=== PATIENT | male | born 2000 | race Caucasian/White ===

== ENCOUNTER 2022-06-09 18:05 | Emergency (ER) | payer MEDICAID, SELFPAY ==
[2022-06-09 18:26] VITALS: BP 110/64; PULSE 112; RESP 20; TEMP 37.1; O2SAT 98
--- NOTE | 2022-06-09 18:52 | ED.GENADUL_ITS ---
Discharge Plan Disposition Patient Disposition: Home Condition: Improving Discharge Details Clinical Impression: Nausea & vomiting, Elevated bilirubin Primary Care Provider: Temi,Local ED Provider: Carter Lopez Home Meds and New Rx's Prescriptions: New ondansetron 4 mg tablet,disintegrating 4 mg PO Q8H PRN3 Days Qty: 9 0RF Discharge Instructions Instructions: Acute Nausea and Vomiting (ED) Additional Instructions: Zofran as directed. Clear liquid diet, advance to bananas, rice, applesauce, tea, toast. Using shared decision making, it was decided to ultrasound tomorrow versus CT imaging here in the ER now. The radiology team should be calling you in the morning so that the ultrasound appointment and after the ultrasound you will return to the ER for results. In the meantime, please watch for new or worsening symptoms and return immediately to the ER. Medical Decision Making This is a 21-year-old male who has been eating 4 slices of pizza for the past 6- 8 months secondary to financial constraints, otherwise was feeling well, denies lack of appetite as a reason for this. During this timeframe he lost a pproximately 10 pounds. Patient states that he came home from school on Thursday, had multiple rich meals, developed nausea, vomiting, diarrhea. Clinically he is well, nontoxic but slightly anxious, slightly dry. Plan is to obtain IV access, obtain routine screening laboratory values, give IV Zofran, 2 L IV fluid and reassess. Abdomen soft, nontender. Patient reports complete resolution of all the symptoms with IV Zofran. Able to tolerate p.o. intake without difficulty. Laboratory values reveal minimal nonspecific leukocytosis of 11.02. Absolute neutrophils of 9.39. Sodium 135 potassium 4.0. Creatinine is 1.6 with a GFR of 62.87. Glucose 152. Total bilirubin of 1.7, LFTs otherwise unremarkable, lipase 20. TSH 0.98. Urinalysis unremarkable for infection or hematuria. Laboratory values did not reveal any obvious emergent process. Minimal nonspecific leukocytosis and total bili of 1.7. Abdomen is soft, nontender. Heart rate now in the 80s. Tolerated p.o. intake, no additional nausea or vomiting here in the ER. Clinically he appears well, nontoxic. Given his nausea and vomiting, minimal nonspecific leukocytosis and bilirubin of 1.7, we discussed neck steps such as imaging. We discussed obtaining CT imaging now, we discussed pros and cons of radiation. We also discussed obtaining ultrasound tomorrow morning and then returning to the ER. Patient would prefer to avoid any radiation at this time as he is currently asymptomatic and would like to return tomorrow for an ultrasound. Given his overall clinical presentation I believe this to be reasonable. Strict discharge and return precautions were provided. Patient understands, is agreeable to this plan, and has no additional questions or concerns upon discharge. This documentation was generated using [employer] system, please disregard any oddities of phrase or misspellings. Lab Data Lab results reviewed: Yes I reviewed the patient's lab results. Labs: 06/09/22 20:45 Urine - Reflex from Ua Urine Culture - Pending Laboratory Tests Range/Units 06/09/22 06/09/22 06/09/22 19:00 19:00 19:00 WBC (4.4-10.8) 10^3/uL 11.02 H RBC (4.36-5.78) 10^6/uL 5.52 Hgb (13.5-17.5) g/dL 17.2 Hct (40.0-50.0) % 49.0 MCV (80-95) fL 89 MCH (27.0-33.0) pg 31.2 MCHC (32.0-36.0) % 35.1 RDW (11.8-14.1) % 11.9 Plt Count (130-400) 10^3/uL 264 MPV (8.0-11.0) fL 9.3 Immature Gran % 0.6 Neutrophils % 85.2 Lymphocytes % 4.6 Monocytes % 9.3 Eosinophils % 0.0 Basophils % 0.3 Nucleated RBC % (0.0-0.3) % 0.0 Absolute Neutrophils (1.2-6.7) 10^3/uL 9.39 H Absolute Lymphocytes (1.2-3.4) 10^3/uL 0.51 L Absolute Monocytes (0.1-0.8) 10^3/uL 1.02 H Absolute Eosinophils (0.0-0.7) 10^3/uL 0.00 Absolute Basophils (0.0-0.2) 10^3/uL 0.03 Sodium (136-145) mmol/L 135 L Potassium (3.5-5.1) mmol/L 4.0 Chloride (98-107) mmol/L 100 Carbon Dioxide (21.0-32.0) mmol/L 24.0 Anion Gap (3-11) mmol/L 11.0 BUN (7-18) mg/dL 29 H Creatinine (0.70-1.30) mg/dL 1.6 H Est GFR (CKD-EPI 2020) (mL/min/1.73m2) 62.87 Glucose (74-106) mg/dL 152 H Calcium (8.5-10.1) mg/dL 9.2 Total Bilirubin (0.2-1.0) mg/dL 1.7 H AST (15-37) U/L 22 ALT (16-63) U/L 29 Alkaline Phosphatase (46-116) U/L 80 Total Protein (6.4-8.2) g/dL 8.6 H Albumin (3.4-5.0) g/dL 4.5 Lipase (73-393) U/L 20 TSH (0.36-3.74) uIU/mL 0.98 Urine Color (Yellow) Urine Clarity (Clear) Urine pH (5-8) Ur Specific [place] (1.005-1.025) Urine Protein (Negative) mg/dL Urine Ketones (Negative) mg/dL Urine Blood (Negative) Urine Nitrite (Negative) Urine Bilirubin (Negative) Urine Urobilinogen (Up TO 0.2) EU/dL Ur Leukocyte Esterase (Negative) Urine RBC (0-2) HPF Urine WBC (0-5) HPF Ur Epithelial Cells (Negative) HPF Urine Crystals (Negative) HPF Urine Bacteria (Negative) HPF Urine Casts (Negative) LPF Urine Mucus (Negative) Ur Culture Indicated? Urine Glucose (Negative) mg/dL Urine Opiates Screen (Negative) Urine Methadone Screen (Negative) Ur Barbiturates Screen (Negative) Ur Tricyclics Screen (Negative) Ur Amphetamines Screen (Negative) U Benzodiazepines Scrn (Negative) Urine Cocaine Screen (Negative) Ur THC Screen (Negative) COVID-19 Source SARS-CoV-2 (PCR) (Negative) Influenza Type A (PCR) (Negative) Influenza Type B (PCR) (Negative) RSV (PCR) (Negative) Range/Units 06/09/22 06/09/22 06/09/22 19:00 20:45 20:45 WBC (4.4-10.8) 10^3/uL RBC (4.36-5.78) 10^6/uL Hgb (13.5-17.5) g/dL Hct (40.0-50.0) % MCV (80-95) fL MCH (27.0-33.0) pg MCHC (32.0-36.0) % RDW (11.8-14.1) % Plt Count (130-400) 10^3/uL MPV (8.0-11.0) fL Immature Gran % Neutrophils % Lymphocytes % Monocytes % Eosinophils % Basophils % Nucleated RBC % (0.0-0.3) % Absolute Neutrophils (1.2-6.7) 10^3/uL Absolute Lymphocytes (1.2-3.4) 10^3/uL Absolute Monocytes (0.1-0.8) 10^3/uL Absolute Eosinophils (0.0-0.7) 10^3/uL Absolute Basophils (0.0-0.2) 10^3/uL Sodium (136-145) mmol/L Potassium (3.5-5.1) mmol/L Chloride (98-107) mmol/L Carbon Dioxide (21.0-32.0) mmol/L Anion Gap (3-11) mmol/L BUN (7-18) mg/dL Creatinine (0.70-1.30) mg/dL Est GFR (CKD-EPI 2020) (mL/min/1.73m2) Glucose (74-106) mg/dL Calcium (8.5-10.1) mg/dL Total Bilirubin (0.2-1.0) mg/dL AST (15-37) U/L ALT (16-63) U/L Alkaline Phosphatase (46-116) U/L Total Protein (6.4-8.2) g/dL Albumin (3.4-5.0) g/dL Lipase (73-393) U/L TSH (0.36-3.74) uIU/mL Urine Color (Yellow) Yellow Urine Clarity (Clear) Clear Urine pH (5-8) 5.5 Ur Specific [place] (1.005-1.025) >= 1.030 H Urine Protein (Negative) mg/dL 30 H Urine Ketones (Negative) mg/dL Negative Urine Blood (Negative) Negative Urine Nitrite (Negative) Negative Urine Bilirubin (Negative) Negative Urine Urobilinogen (Up TO 0.2) EU/dL 0.2 Ur Leukocyte Esterase (Negative) Negative Urine RBC (0-2) HPF 0-2 Urine WBC (0-5) HPF 3-5 Ur Epithelial Cells (Negative) HPF Rare Urine Crystals (Negative) HPF Negative Urine Bacteria (Negative) HPF Many Urine Casts (Negative) LPF 3-5 Hyaline Urine Mucus (Negative) Moderate Ur Culture Indicated? Yes Urine Glucose (Negative) mg/dL Negative Urine Opiates Screen (Negative) Negative Urine Methadone Screen (Negative) Negative Ur Barbiturates Screen (Negative) Negative Ur Tricyclics Screen (Negative) Negative Ur Amphetamines Screen (Negative) Negative U Benzodiazepines Scrn (Negative) Negative Urine Cocaine Screen (Negative) Negative Ur THC Screen (Negative) Negative COVID-19 Source Nasopharynx SARS-CoV-2 (PCR) (Negative) Negative Influenza Type A (PCR) (Negative) Negative Influenza Type B (PCR) (Negative) Negative RSV (PCR) (Negative) Negative Sign Out No HPI General Mode of arrival: ambulatory . Date/Time Provider Initiated Documentation: 06/09/22 18:20 . Limitations to Documentation: no limitations . Information obtained by: patient and family . HPI Narrative: This is a 21-year-old male with no significant past medical history presenting to the ER with his parents for evaluation of nausea and vomiting. Patient states that he has been at college for the past year or so and because of financial restraints has been eating 4 pieces of pizza daily for the past 6 months and that consists of his entire diet. He states in that timeframe he lost approximately 10 pounds. He reports that his appetite was normal and he was otherwise asymptomatic. He came home on Thursday and ate out at a restaurant, had multiple rich meals, and since that time has had nausea, vomiting, diarrhea. Patient is reporting decreased intake for the past 3 days, reports that he lost approximately 5-10 pounds over the past weekend, occasionally has abdominal cramping with the vomiting but otherwise has no abdominal pain. He denies recent illness or sick contacts. Denies bad food exposure. He does report overall not feeling well, mild headache, some body aches. Denies fever, chest pain, shortness of breath, constipation, change in stool color, dysuria, skin rash, numbness, tingling, weakness. Related Data Home Medications Medication Instructions Recorded Confirmed ondansetron 4 mg disintegrating 4 mg PO Q8H PRN 3 days #9 tabs 06/09/22 tablet Previous Rx's Medication Instructions Recorded ondansetron 4 mg disintegrating 4 mg PO Q8H PRN 3 days #9 tabs 06/09/22 tablet Allergies Allergy/AdvReac Type Severity Reaction Status Date / Time No Known Allergies Allergy Unverified 06/09/22 19:06 General Stated Complaint: Abd Prob SANDY: 3 Review of Systems Constitutional Constitutional: Denies fever(s) and Reports headache(s) ENT Ears, Nose, Mouth, and Throat: Reports headache(s) and Denies sore throat Cardiovascular Cardiovascular: Denies chest pain and Denies dyspnea Respiratory Respiratory: Denies cough and Denies dyspnea Gastrointestinal Gastrointestinal: Reports abdominal pain, Denies melena, Denies hematochezia, Denies constipation, Reports diarrhea, Reports nausea and Reports vomiting Genitourinary Genitourinary: Denies dysuria Musculoskeletal Musculoskeletal: Denies back pain Integumentary/Breasts Skin/Breast: Denies rash Neurologic Neurologic: Reports headache(s) PFSH All Active Problems Nausea & vomiting (Acute) Elevated bilirubin (Acute) Social History Smoking/Tobacco Use Status: Never Smoking risk assessment performed?: Yes Alcohol Intake: never Substance use type: does not use Do you feel safe at home: Yes Do you feel safe in your relationship?: Yes Exam Const General: cooperative, healthy appearing, comfortable, no acute distress and anxious (Minimally) Orientation: alert and awake [facility] Head: normal to inspection, normocephalic and atraumatic Mouth: moist mucous membranes abnormal (Slightly dry) Eyes General: appearance normal, both eyes and all related structures Conjunctivae: conjunctivae normal Neck Neck: normal visual inspection, full ROM, no meningeal signs, trachea midline and supple Resp Effort & Inspection: normal respiratory effort and able to speak in complete sentences Auscultation: clear to auscultation bilaterally Cardio Rate: tachycardic (108) Rhythm: regular rhythm GI Inspection: normal to inspection Palpation: soft, not firm, no guarding, no pulsatile masses and nontender Auscultation: normal bowel sounds Back/Spine/Pelvis Back: no CVA tenderness and No back tenderness Skin General skin exam: no rashes or lesions noted Neuro General: patient alert, patient awake, moves all extremities and no focal motor deficits Cognition: normal cognition Speech: speech normal Gait: normal gait Motor: muscle tone normal throughout Sensory Exam: no sensory deficits noted Extrem General: normal to inspection, full ROM and capillary refill normal Psych Appearance: grossly normal Mental Status: mental status grossly normal Course Vital Signs Vital signs: Vital Signs Temperature 37.1 C 06/09/22 18:26 Pulse 112 H 06/09/22 18:26 Respiratory Rate 20 06/09/22 18:26 Blood Pressure 110/64 06/09/22 18:26 Pulse Oximetry 98 06/09/22 18:26 Temperature 37.1 C 06/09/22 18:26 Temperature Source Temporal Artery Scan 06/09/22 18:26 Pulse 112 H 06/09/22 18:26 Respiratory Rate 20 06/09/22 18:26 Blood Pressure 110/64 06/09/22 18:26 Blood Pressure Position Sitting 06/09/22 18:26 Pulse Oximetry 98 06/09/22 18:26 Oxygen Delivery Method Room Air 06/09/22 18:26 Oxygen Flow Rate 0 06/09/22 18:26 Pain Level 0 06/09/22 18:26
[2022-06-09] MEDS: Ondansetron 4 MG/2 ML VIAL IVP (19:02)
[2022-06-09] MEDS: Normal Saline 1,000 ML 1000 ML IV ×2 (19:02→20:00)
[2022-06-09 19:17] LABS: Abs Immature Grans 0.07 10^3/uL (0.0-0.06); Absolute Basophil Count 0.03 10^3/uL (0.0-0.2); Absolute Lymphocyte Count 0.51 10^3/uL (1.2-3.4); Absolute Monocyte Count 1.02 10^3/uL (0.1-0.8); Absolute Neutrophil Count 9.39 10^3/uL (1.2-6.7); Basophils % 0.3; HGB 17.2 g/dL (13.5-17.5); Immature Grans % 0.6; Lymphocytes % 4.6; MCH 31.2 pg (27.0-33.0); MCHC 35.1 % (32.0-36.0); MCV 89 fL (80-95); MPV 9.3 fL (8.0-11.0); Monocytes % 9.3; Neutrophils % 85.2; Platelet Count 264 10^3/uL (130-400); RBC 5.52 10^6/uL (4.36-5.78); RDW 11.9 % (11.8-14.1); RDW-SD 38.5 fL; WBC 11.02 10^3/uL (4.4-10.8)
[2022-06-09 19:29] LABS: ALT 29 U/L (16-63); AST 22 U/L (15-37); Albumin 4.5 g/dL (3.4-5.0); Alkaline Phosphatase 80 U/L (46-116); BUN 29 mg/dL (7-18); Bilirubin, Total 1.7 mg/dL (0.2-1.0); CREATININE 1.6 mg/dL (0.70-1.30); Calcium 9.2 mg/dL (8.5-10.1); Chloride 100 mmol/L (98-107); Estimated GFR 62.87 (mL/min/1.73m2); Glucose 152 mg/dL (74-106); Lipase 20 U/L (73-393); Sodium 135 mmol/L (136-145); Total Protein 8.6 g/dL (6.4-8.2)
[2022-06-09 19:33] LABS: TSH (W/Ref FT4) 0.98 uIU/mL (0.36-3.74)
--- NOTE | 2022-06-09 19:39 | NUR.NOTE ---
Nursing Note:Pt stated not able to urinate at this time,pt currently getting fluids, CYNDIE
[2022-06-09 19:44] LABS: COVID-19 PCR Negative (Negative); Influenza A PCR Negative (Negative); Influenza B PCR Negative (Negative); RSV PCR Negative (Negative)
[2022-06-09 19:45] LABS: Source Nasopharynx
[2022-06-09 20:58] LABS: Bilirubin Negative (Negative); Blood Negative (Negative); Clarity Clear (Clear); Glucose Negative (Negative); Ketones Negative (Negative); Leukocyte Esterase Negative (Negative); Nitrite Negative (Negative); Specific Gravity >= 1.030 (1.005-1.025); Urobilinogen 0.2 EU/dL (Up TO 0.2); pH 5.5 (5-8)
[2022-06-09 21:00] VITALS: BP 111/61; PULSE 81; RESP 20; O2SAT 98
[2022-06-09 21:07] LABS: Bacteria Many HPF (Negative); Crystals Negative HPF (Negative); Epithelial Cells Rare HPF (Negative); RBC 0-2 HPF (0-2)
[2022-06-09 21:08] LABS: C & S Indicated? Yes; Casts 3-5 Hyaline LPF (Negative); Mucus Moderate (Negative)
[2022-06-09 21:10] LABS: *AMPHETAMINES SCREEN URINE Negative (Negative); *BARBITURATES SCREEN URINE Negative (Negative); *BENZODIAZEPINES SCREEN URINE Negative (Negative); Cannabinoids THC Negative (Negative); Cocaine Screen,Urine Negative (Negative); METHADONE URINE SCREEN Negative (Negative); OPIATES URINE SCREEN Negative (Negative)
[2022-06-09 21:12] LABS: Tricyclic Antidepressants Negative (Negative)
== END 2022-06-09 21:32 | disposition home or self-care (01) ==
PROVIDERS: Emergency Provider Physician Assistant
DX: R17 Unspecified jaundice (principal); Z20.822 Contact with and (suspected) exposure to COVID-19
CPT/HCPCS: 80053; 80307; 83690; 87637; 96361; 96374; 99284; 81003; 81015; 84443; 85025; 87086; J2405

== ENCOUNTER 2022-06-10 13:12 | Emergency (ER) | payer MEDICAID, SELFPAY ==
[2022-06-10 13:21] VITALS: BP 112/70; PULSE 71; RESP 16; TEMP 37.1; O2SAT 99
--- NOTE | 2022-06-10 14:15 | ED.GENADUL_ITS ---
Discharge Plan Disposition Patient Disposition: Home Condition: Stable Discharge Details Clinical Impression: Nausea & vomiting Primary Care Provider: Temi,Local ED Provider: Lori Cooney Home Meds and New Rx's Prescriptions: New ondansetron 4 mg tablet,disintegrating 4 mg PO DAILY Qty: 10 0RF Discharge Instructions Instructions: Acute Nausea and Vomiting (ED) Additional Instructions: Zofran as needed take Zofran as needed for nausea and vomiting Please follow-up with a primary care physician should he have persistent symptoms Regular fluids, bland diet as tolerated Results of ultrasound related and negative for acute abnormality Discharge Data Discharge Date/Time-TO BE ENTERED AT DEPARTURE: 06/10/22 14:28 Medical Decision Making Patient appears well, his ultrasound does not show acute abnormality He will follow-up with his primary care physician and return earlier should he have new or worsening complaints Is discharged home in stable condition with stable vitals, antiemetics for home as needed Medical Records Medical records reviewed: Yes I reviewed the patient's medical records. Sign Out No HPI General Date/Time Provider Initiated Documentation: 06/10/22 13:14 . HPI Narrative: This 21-year-old male presents with nausea and vomiting. He states he started with nausea vomiting and diarrhea upon return from college. He denies any chest pain or shortness of breath. He denies any dizziness or weakness. He has not vomited since yesterday. He presents for ultrasound results. Related Data Home Medications Medication Instructions Recorded Confirmed ondansetron 4 mg disintegrating 4 mg PO DAILY #10 tabs 06/10/22 tablet Previous Rx's Medication Instructions Recorded ondansetron 4 mg disintegrating 4 mg PO DAILY #10 tabs 06/10/22 tablet Allergies Allergy/AdvReac Type Severity Reaction Status Date / Time No Known Allergies Allergy Unverified 06/10/22 13:23 General Stated Complaint: Recheck SANDY: 4 Review of Systems All systems reviewed & are unremarkable except as noted in HPI and below PFSH All Active Problems (Updated 06/10/22 @ 14:19 by NASREEN Chavez) Nausea & vomiting (Acute) Elevated bilirubin (Acute) Social History Smoking/Tobacco Use Status: Never Smoking risk assessment performed?: Yes Alcohol Intake: never Drug use: Never Substance use type: does not use Do you feel safe at home: Yes Do you feel safe in your relationship?: Yes Exam Const General: cooperative, comfortable and no acute distress Eyes Sclera: sclerae normal Resp Effort & Inspection: normal respiratory effort Auscultation: clear to auscultation bilaterally Cardio Rate: regular rate Rhythm: regular rhythm GI Inspection: normal to inspection Auscultation: normal bowel sounds Other: Nontender abdominal exam Skin General skin exam: no rashes or lesions noted Neuro General: patient alert and patient oriented x3 Extrem General: normal to inspection Course Vital Signs Vital signs: Vital Signs Temperature 37.1 C 06/10/22 13:21 Pulse 71 06/10/22 13:21 Respiratory Rate 16 06/10/22 13:21 Blood Pressure 112/70 06/10/22 13:21 Pulse Oximetry 99 06/10/22 13:21 Temperature 37.1 C 06/10/22 13:21 Temperature Source Temporal Artery Scan 06/10/22 13:21 Pulse 71 06/10/22 13:21 Respiratory Rate 16 06/10/22 13:21 Respiratory Effort Non-Labored 06/10/22 13:24 Blood Pressure 112/70 06/10/22 13:21 Blood Pressure Position Supine 06/10/22 13:21 Pulse Oximetry 99 06/10/22 13:21 Oxygen Delivery Method Room Air 06/10/22 13:21 Oxygen Flow Rate 0 06/10/22 13:21
== END 2022-06-10 14:28 | disposition home or self-care (01) ==
PROVIDERS: Emergency Provider Physician Assistant
DX: R11.2 Nausea with vomiting, unspecified (principal)